=== PATIENT | female | born 1955 | race Caucasian/White ===

== ENCOUNTER 2017-05-16 08:44 | Emergency (ER) | payer SELFPAY ==
[2017-05-16 08:46] VITALS: BP 150/85; PULSE 90; RESP 16; TEMP 97.6; O2SAT 100
--- NOTE | 2017-05-16 09:30 | RADRPT ---
EXAM DATE/TIME: 05/16/2017 09:06 [place] COMPARISON: No previous studies available for comparison. INDICATIONS : Fell last night landing on left wrist, bruising and swelling base of thumb into navicular area. MEDICAL HISTORY : Fx Left wrist as child. SURGICAL HISTORY : None. ENCOUNTER: Initial ACUITY: 2 days PAIN SCORE: 9/10 LOCATION: Left wrist. FINDINGS: Three view examination of the left wrist demonstrates no soft tissue swelling, dislocation, or fractu re. The carpal bones are in normal alignment. Mild arthritic changes. Bony mineralization is normal . CONCLUSION: No acute bony injury Jasen Saenz MD on May 16, 2017 at 9:26 Board Certified Radiologist. This report was verified electronically.
--- NOTE | 2017-05-16 09:50 | PD ---
HPI Chief Complaint: Injury Time Seen by Provider: 09:35 Travel History International Travel<30 days: No Contact w/Intl Traveler<30days: No Traveled to known affect area: No History of Present Illness HPI 62 year-old female presents to the emergency room for evaluation of left wrist pain and swelling after falling last night. Patient was standing on a chair cleaning the fan when she lost her balance and fell to the left. She does not remember how she landed. She either slammed her wrist on the counter or landed on it. She had immediate pain which kept her up most of the night. She denies any other injuries. She did not hit or head or lose consciousness. She took 6 aspirin and ibuprofen this morning without relief in symptoms. Pain is worsened with range of motion. No paraesthesias. PFSH Social History Tobacco Use: No Allergies-Medications (Allergen,Severity, Reaction): Coded Allergies: codeine (Verified Allergy, Unknown, 05/16/17) Review of Systems Except as stated in HPI: all other systems reviewed are Neg Physical Exam Narrative GENERAL: Well-developed female in no acute distress. SKIN: Warm and dry. Small erythematous area over the radial left wrist. HEAD: Normocephalic. EYES: No scleral icterus. No injection or drainage. NECK: Supple, trachea midline. No JVD or lymphadenopathy. CARDIOVASCULAR: Regular rate and rhythm without murmurs, gallops, or rubs. RESPIRATORY: Breath sounds equal bilaterally. No accessory muscle use. GASTROINTESTINAL: Abdomen soft, non-tender, nondistended. MUSCULOSKELETAL: No cyanosis. Mild edema over the left distal radius. 2+ radial pulse. Radial, ulnar, and median nerves in tact. Full range of motion in the left wrist, elbow, and hand. Tenderness to palpation of the left distal wrist. No bony tenderness to the elbow. Data Data Last Documented VS Vital Signs Date Time Temp Pulse Resp B/P (MAP) Pulse Ox O2 Delivery O2 Flow Rate FiO2 05/16/17 08:46 97.6 90 16 150/85 (106) 100 Orders Orders Wrist, Complete ([id number]) (05/16/17 ) [facility] Medical Decision Making Medical Screen Exam Complete: Yes Emergency Medical Condition: Yes Medical Record Reviewed: Yes Differential Diagnosis sprain, strain, contusion, fracture Narrative Course 62 year-old female presents to the ED for left wrist pain after mechanical fall last night. No other injuries. Mild edema, TTP, and bruising to left distal, radial wrist. Neurovascularly in tact. Full range of motion. X-ray negative. Either contusion or sprain. Patient given wrist splint for comfort. She will follow-up with her PCP or return as needed. Diagnosis Primary Impression: Wrist contusion Qualified Codes: S60.212A - Contusion of left wrist, initial encounter Referrals: Primary Care Physician Additional Instructions: Ice 20 minutes, 5 times daily. Splint as needed for pain. Ibuprofen as directed, as needed . Follow up with PCP. Return as needed for worsening symptoms. Disposition: 01 DISCHARGE HOME Condition: Stable Elaine Cohen May 16, 2017 09:50
[2017-05-16] MEDS ORDERED: traMADol HCL 50 MG TAB PO ONE (10:00)
== END 2017-05-16 10:29 | disposition home or self-care (01) ==
LOC: NEPK 08:44
DX: S60.212A Contusion of left wrist, initial encounter (principal); W07.XXXA Fall from chair, initial encounter; Y93.E9 Activity, other interior property and clothing maintenance
CPT/HCPCS: 73110; 99283